=== PATIENT | male | born 1940 | race Two or more races ===

== ENCOUNTER 2024-04-02 13:40 | Inpatient (IN) | payer BC, OTHER ==
[2024-04-02] VITALS (8 sets, daily range): BP systolic 106–126; BP diastolic 52–61; PULSE 55–68; RESP 14–16; TEMP 96.6; O2SAT 93–100
[~2024-04-02] VITALS: Ht 172.7 cm; Wt 92.0 kg
[2024-04-02] MEDS: ETOMIDATE (2MG/ML) 20ML VIAL IV ONE ×2 (14:30→14:47)
[2024-04-02] MEDS: NOREPINEPHRINE 8 MG/250ML KIT 250 ML IV SCH (14:35)
[2024-04-02] MEDS: MIDAZOLAM DRIP 50 mg/50mL 50 ML IV SCH (14:40)
[2024-04-02] MEDS ORDERED: NOREPINEPHRINE 8 MG/250ML KIT 250 ML IV SCH (14:45)
[2024-04-02] MEDS ORDERED: MIDAZOLAM DRIP 50 mg/50mL 50 ML IV SCH (14:45)
[2024-04-02] MEDS: MIDAZOLAM DRIP 50 mg/50mL 50 ML IV ONE (14:48)
[2024-04-02] MEDS: SUCCINYLCHOLINE CHLORIDE 20 MG/ML 10ML VIAL IV ONE (14:48)
[2024-04-02] MEDS: NOREPINEPHRINE 8 MG/250ML KIT 250 ML IV ONE (14:49)
[2024-04-02 15:48] LABS: Basophils # (auto) 0 10 ^3/uL (0-0.2); Basophils % (auto) 0.3 % (0.0-2.0); Eosinophils # (auto) 0 10 ^3/uL (0-0.8); Eosinophils % (auto) 0.3 % (0.0-7.0); Hematocrit 32.5 % (41.0-53.0); Hemoglobin 11.1 g/dL (13.5-17.5); Lymphocytes # (auto) 1.9 10 ^3/uL (0.4-5.4); Lymphocytes % (auto) 17.1 % (10.0-50.0); Mean Corpuscular Hemoglobin 31.3 pg (28.0-32.0); Mean Corpuscular Hgb Conc. 34.1 g/dL (32.0-36.0); Mean Corpuscular Volume 91.6 fL (80.0-100.0); Monocytes # (auto) 0.7 10 ^3/uL (0-1.3); Monocytes % (auto) 6.5 % (0.0-12.0); Neutrophils # (auto) 8.5 10 ^3/uL (1.6-8.6); Neutrophils % (auto) 75.8 % (37.0-80.0); Nucleated Red Blood Cells % 0.1 %; Red Blood Cells 3.55 10^6/uL (4.5-5.90); Red Cell Distribution Width 14.1 % (11.8-14.3); White Blood Cell 11.2 10^3/uL (4.4-10.8)
[2024-04-02] MEDS: SODIUM CHLORIDE 0.9% 1,000 ML IV ONE (15:54)
[2024-04-02 15:58] LABS: Base Excess 1.1 mmol/L (-2.0-2.0)
[2024-04-02 15:59] LABS: Alanine Aminotransferase 49 U/L (7-40); Albumin 3.9 g/dL (3.2-4.8); Alkaline Phosphatase 46 U/L (46-116); Anion Gap 10 (5-15); Aspartate Aminotransferase 99 U/L (13-40); BUN/Creatinine Ratio 19.6 (10.0-20.0); Bilirubin, Total 1.4 mg/dL (0.2-1.0); Blood Urea Nitrogen 18 mg/dL (9-23); Carbon Dioxide 25 mmol/L (20-30); Chloride 100 mmol/L (98-107); Glucose 176 mg/dL (74-106); Sodium 135 mmol/L (136-145); Total Protein 6.8 g/dL (5.7-8.2)
[2024-04-02 16:10] LABS: Lactic Acid w/Reflex 2.6 mmol/L (0.4-2.0); Potassium 2.5 mmol/L (3.5-5.1)
[2024-04-02 16:17] LABS: Lipase 55 U/L (12-53)
[2024-04-02] MEDS: POTASSIUM CHL 20MEQ/100ML 100 ML IV SCH (16:30)
[2024-04-02] MEDS: cefTRIAXone 1GM/50ML D5W 50 ML IV ONE (16:30)
[2024-04-02] MEDS: AZITHROMYCIN 500MG/ 250ML 250 ML IV ONE (17:00)
[2024-04-02] MEDS ORDERED: ACETAMINOPHEN 325 MG TAB PO PRN (17:45)
[2024-04-02] MEDS ORDERED: NITROGLYCERIN 0.4 MG SL TAB SL PRN (17:45)
[2024-04-02] MEDS ORDERED: MORPHINE SULFATE INJ 2 MG/ml SYRG IV PRN (17:45)
[2024-04-02] MEDS ORDERED: ONDANSETRON HCL 4 MG/2 ML VIAL IV PRN (17:45)
[2024-04-02] MEDS: SODIUM CHLORIDE 0.9% 1,000 ML IV SCH (18:57)
[2024-04-02 19:28] LABS: Urine Bacteria FEW /hpf (None Seen); Urine Blood Negative /uL (Negative); Urine Clarity Clear (Clear); Urine Color Yellow (Yellow); Urine Hyaline Cast FEW /lpf (0 - 2); Urine Mucus FEW (None Seen); Urine Protein, UAD 1+ (Negative); Urine Specific Gravity 1.025 (1.001-1.035); Urine Urobilinogen 4 mg/dL (Negative); Urine WBC 2 /hpf (0 - 3); Urine pH 6.5 (5.0-9.0)
[2024-04-03] VITALS (13 sets, daily range): BP systolic 90–123; BP diastolic 42–57; PULSE 51–61; RESP 14–18; O2SAT 99–100
[2024-04-03 04:37] LABS: Basophils # (auto) 0.1 10 ^3/uL (0-0.2); Basophils % (auto) 0.5 % (0.0-2.0); Eosinophils # (auto) 0.1 10 ^3/uL (0-0.8); Eosinophils % (auto) 0.9 % (0.0-7.0); Hematocrit 29.6 % (41.0-53.0); Hemoglobin 10.2 g/dL (13.5-17.5); Lymphocytes # (auto) 1.4 10 ^3/uL (0.4-5.4); Lymphocytes % (auto) 12.5 % (10.0-50.0); Mean Corpuscular Hemoglobin 31.6 pg (28.0-32.0); Mean Corpuscular Hgb Conc. 34.5 g/dL (32.0-36.0); Mean Corpuscular Volume 91.8 fL (80.0-100.0); Monocytes # (auto) 0.9 10 ^3/uL (0-1.3); Monocytes % (auto) 8.5 % (0.0-12.0); Neutrophils # (auto) 8.4 10 ^3/uL (1.6-8.6); Neutrophils % (auto) 77.6 % (37.0-80.0); Nucleated Red Blood Cells % 0.1 %; Red Blood Cells 3.22 10^6/uL (4.5-5.90); Red Cell Distribution Width 14.1 % (11.8-14.3); White Blood Cell 10.8 10^3/uL (4.4-10.8)
[2024-04-03 04:57] LABS: Alanine Aminotransferase 35 U/L (7-40); Albumin 3.5 g/dL (3.2-4.8); Alkaline Phosphatase 42 U/L (46-116); Anion Gap 6 (5-15); Aspartate Aminotransferase 69 U/L (13-40); BUN/Creatinine Ratio 23.8 (10.0-20.0); Blood Urea Nitrogen 20 mg/dL (9-23); Calcium 8.4 mg/dL (8.5-10.1); Carbon Dioxide 25 mmol/L (20-30); Chloride 105 mmol/L (98-107); Glucose 125 mg/dL (74-106); Potassium 3.1 mmol/L (3.5-5.1); Sodium 136 mmol/L (136-145)
[2024-04-03 04:58] LABS: Bilirubin, Total 1.1 mg/dL (0.2-1.0)
[2024-04-03 07:24] LABS: Base Excess 0.7 mmol/L (-2.0-2.0)
[2024-04-03] MEDS: cefTRIAXone 1GM/50ML D5W 50 ML IV SCH (09:06)
[2024-04-03] MEDS: ENOXAPARIN SOD 40 MG/0.4 ML SYRINGE SC SCH (10:37)
[2024-04-03] MEDS: POTASSIUM CHL 20MEQ/100ML 100 ML IV SCH (11:04)
[2024-04-03] MEDS: PANTOPRAZOLE 40 MG/10 ML VIAL INJ IV SCH (12:36)
[2024-04-04] VITALS (79 sets, daily range): BP systolic 89–176; BP diastolic 43–83; PULSE 45–65; RESP 8–27; TEMP 96.6–98.4; O2SAT 98–100
[2024-04-04 05:14] LABS: Basophils # (auto) 0 10 ^3/uL (0-0.2); Basophils % (auto) 0.3 % (0.0-2.0); Eosinophils # (auto) 0 10 ^3/uL (0-0.8); Eosinophils % (auto) 0.3 % (0.0-7.0); Hematocrit 28.2 % (41.0-53.0); Hemoglobin 9.6 g/dL (13.5-17.5); Mean Corpuscular Hemoglobin 31.6 pg (28.0-32.0); Mean Corpuscular Volume 92.9 fL (80.0-100.0); Monocytes # (auto) 0.7 10 ^3/uL (0-1.3); Monocytes % (auto) 6.8 % (0.0-12.0); Neutrophils # (auto) 8.2 10 ^3/uL (1.6-8.6); Neutrophils % (auto) 82.6 % (37.0-80.0); Red Blood Cells 3.03 10^6/uL (4.5-5.90); Red Cell Distribution Width 14.4 % (11.8-14.3); White Blood Cell 9.9 10^3/uL (4.4-10.8)
[2024-04-04 05:32] LABS: Alanine Aminotransferase 24 U/L (7-40); Albumin 3.2 g/dL (3.2-4.8); Alkaline Phosphatase 44 U/L (46-116); Anion Gap 5 (5-15); Aspartate Aminotransferase 35 U/L (13-40); BUN/Creatinine Ratio 26.8 (10.0-20.0); Blood Urea Nitrogen 22 mg/dL (9-23); Calcium 8.3 mg/dL (8.7-10.4); Carbon Dioxide 24 mmol/L (20-30); Chloride 107 mmol/L (98-107); Glucose 116 mg/dL (74-106); Potassium 3.3 mmol/L (3.5-5.1); Sodium 136 mmol/L (136-145)
[2024-04-04 05:33] LABS: Bilirubin, Total 0.9 mg/dL (0.2-1.0); Total Protein 5.8 g/dL (5.7-8.2)
[2024-04-04 07:09] LABS: Base Excess -1.4 mmol/L (-2.0-2.0)
[2024-04-04] MEDS: POTASSIUM CHL 20MEQ/100ML 100 ML IV ONE (09:31)
[2024-04-04 11:21] LABS: Free T3 1.26 pg/mL (2.3-4.2)
[2024-04-04 11:24] LABS: Free T4 (Free Thyroxine) 0.66 ng/dL (0.89-1.76)
[2024-04-04] MEDS: EPINEPHrine HCL 1 MG/10 ML SYRG ONE (12:38)
[2024-04-04] MEDS: DOPamine 1600MCG/ML D5W 0 ML IV ONE (12:42)
[2024-04-04] MEDS ORDERED: LEVOTHYROXINE SODIUM 100 MCG/5 ML INJ IV SCH (18:00)
[2024-04-05] VITALS (108 sets, daily range): BP systolic 78–159; BP diastolic 35–72; PULSE 45–102; RESP 12–30; TEMP 93.5–99.3; O2SAT 93–100
[2024-04-05 04:13] LABS: Basophils # (auto) 0 10 ^3/uL (0-0.2); Basophils % (auto) 0.2 % (0.0-2.0); Eosinophils # (auto) 0 10 ^3/uL (0-0.8); Eosinophils % (auto) 0.2 % (0.0-7.0); Hematocrit 27.5 % (41.0-53.0); Hemoglobin 9.6 g/dL (13.5-17.5); Lymphocytes # (auto) 0.8 10 ^3/uL (0.4-5.4); Lymphocytes % (auto) 7.7 % (10.0-50.0); Mean Corpuscular Hemoglobin 31.9 pg (28.0-32.0); Mean Corpuscular Hgb Conc. 34.7 g/dL (32.0-36.0); Monocytes # (auto) 0.7 10 ^3/uL (0-1.3); Monocytes % (auto) 6.7 % (0.0-12.0); Neutrophils # (auto) 8.4 10 ^3/uL (1.6-8.6); Neutrophils % (auto) 85.2 % (37.0-80.0); Red Cell Distribution Width 14.3 % (11.8-14.3); White Blood Cell 9.8 10^3/uL (4.4-10.8)
[2024-04-05 04:23] LABS: Alanine Aminotransferase 22 U/L (7-40); Albumin 3.3 g/dL (3.2-4.8); Alkaline Phosphatase 48 U/L (46-116); Anion Gap 4 (5-15); Aspartate Aminotransferase 25 U/L (13-40); BUN/Creatinine Ratio 40.9 (10.0-20.0); Blood Urea Nitrogen 27 mg/dL (9-23); Calcium 8.5 mg/dL (8.7-10.4); Carbon Dioxide 24 mmol/L (20-30); Chloride 108 mmol/L (98-107); Glucose 117 mg/dL (74-106); Magnesium 2.1 mg/dL (1.6-2.6); Potassium 3.4 mmol/L (3.5-5.1); Sodium 136 mmol/L (136-145)
[2024-04-05 04:24] LABS: Bilirubin, Total 0.9 mg/dL (0.2-1.0)
[2024-04-05] MEDS: LEVOTHYROXINE SODIUM 100 MCG/5 ML INJ IV SCH (06:29)
[2024-04-05 07:00] LABS: Base Excess -1.4 mmol/L (-2.0-2.0)
[2024-04-05] MEDS: ISOPROTERENOL HCL INJECTION 1 MG in D5W 5% 250 ML IV SCH ×3 (10:00→19:30)
[2024-04-05] MEDS ORDERED: Jevity 1.2 Cal/Fiber 1 Liter GT SCH (10:00)
[2024-04-05] MEDS: fentaNYL Drip 2500mCg/250mlNS 250 ML IV SCH (12:07)
[2024-04-05] MEDS ORDERED: ROSU20TA14 PO (12:21)
[2024-04-05] MEDS ORDERED: LEVO150T10 PO (12:21)
[2024-04-05] MEDS ORDERED: CYA100I PO (12:21)
[2024-04-05] MEDS ORDERED: VALS320T PO (12:21)
[2024-04-05] MEDS ORDERED: NIF10C PO (12:21)
[2024-04-05] MEDS ORDERED: HYDR25TA5 PO (12:21)
[2024-04-05] MEDS ORDERED: DONETAB5 PO (12:21)
[2024-04-05] MEDS ORDERED: METO25TA93 PO (12:21)
[2024-04-05] MEDS ORDERED: ISOPROTERENOL HCL INJECTION 1 MG in D5W 5% 250 ML IV SCH (19:15)
[2024-04-06] VITALS (98 sets, daily range): BP systolic 84–143; BP diastolic 40–94; PULSE 59–94; RESP 5–29; TEMP 93.4–98.4; O2SAT 92–100
[2024-04-06] MEDS: PIPERACILLIN-TAZOB 3.375GM 100 ML IV ONE (01:30)
[2024-04-06 04:10] LABS: Basophils # (auto) 0 10 ^3/uL (0-0.2); Basophils % (auto) 0.3 % (0.0-2.0); Eosinophils # (auto) 0 10 ^3/uL (0-0.8); Eosinophils % (auto) 0.1 % (0.0-7.0); Hematocrit 27.2 % (41.0-53.0); Hemoglobin 9.4 g/dL (13.5-17.5); Lymphocytes # (auto) 0.7 10 ^3/uL (0.4-5.4); Lymphocytes % (auto) 7.6 % (10.0-50.0); Mean Corpuscular Hemoglobin 32.2 pg (28.0-32.0); Mean Corpuscular Hgb Conc. 34.6 g/dL (32.0-36.0); Mean Corpuscular Volume 92.9 fL (80.0-100.0); Monocytes # (auto) 0.8 10 ^3/uL (0-1.3); Monocytes % (auto) 7.9 % (0.0-12.0); Neutrophils # (auto) 8.1 10 ^3/uL (1.6-8.6); Neutrophils % (auto) 84.1 % (37.0-80.0); Red Blood Cells 2.93 10^6/uL (4.5-5.90); Red Cell Distribution Width 14.2 % (11.8-14.3); White Blood Cell 9.6 10^3/uL (4.4-10.8)
[2024-04-06 04:20] LABS: Chloride 105 mmol/L (98-107); Sodium 138 mmol/L (136-145)
[2024-04-06 04:21] LABS: Anion Gap 10 (5-15); Carbon Dioxide 23 mmol/L (20-30)
[2024-04-06 04:22] LABS: Calcium 7.7 mg/dL (8.7-10.4)
[2024-04-06 04:23] LABS: Partial Thromboplastin Time 22.8 SEC (24.5-34.5); Prothrombin Time 10.6 sec (9.3-11.8)
[2024-04-06 04:26] LABS: BUN/Creatinine Ratio 37.7 (10.0-20.0); Blood Urea Nitrogen 29 mg/dL (9-23); Glucose 126 mg/dL (74-106)
[2024-04-06 04:27] LABS: Magnesium 1.7 mg/dL (1.6-2.6)
[2024-04-06 04:29] LABS: Phosphorus 3.3 mg/dL (2.4-5.1)
[2024-04-06] MEDS: PIPERACILLIN-TAZOB 3.375GM 100 ML IV SCH (05:41)
[2024-04-06] MEDS: VANCOMYCIN 1GM/200ML 200 ML IV ONE (06:40)
[2024-04-06] MEDS: VANCOMYCIN HCL 1000 MG VL ONE ×2 (06:40→08:49)
[2024-04-06] MEDS: LIDOCAINE 2%HCL (LOCAL ANESTH.) INJ 20ML MDV ONE (06:40)
[2024-04-06] MEDS: IOHEXOL 350 MG/ML 100ML IJ ONE ×2 (07:17→08:29)
[2024-04-06] MEDS: LEVOTHYROXINE SODIUM 100 MCG/5 ML INJ IV SCH (07:39)
[2024-04-06 11:53] LABS: Base Excess -3.4 mmol/L (-2.0-2.0)
[2024-04-06] MEDS: VANCOMYCIN 1GM/200ML 200 ML IV SCH (22:11)
[2024-04-07] VITALS (102 sets, daily range): BP systolic 86–152; BP diastolic 41–76; PULSE 56–103; RESP 11–29; TEMP 97.4–99.7; O2SAT 89–100
[2024-04-07 06:08] LABS: Basophils # (auto) 0.1 10 ^3/uL (0-0.2); Eosinophils # (auto) 0.1 10 ^3/uL (0-0.8); Eosinophils % (auto) 1.5 % (0.0-7.0); Hemoglobin 8.9 g/dL (13.5-17.5); Lymphocytes # (auto) 0.7 10 ^3/uL (0.4-5.4); Lymphocytes % (auto) 9.3 % (10.0-50.0); Mean Corpuscular Hgb Conc. 34.2 g/dL (32.0-36.0); Mean Corpuscular Volume 93.4 fL (80.0-100.0); Monocytes # (auto) 0.7 10 ^3/uL (0-1.3); Neutrophils % (auto) 79.2 % (37.0-80.0); Red Blood Cells 2.78 10^6/uL (4.5-5.90); Red Cell Distribution Width 14.3 % (11.8-14.3); White Blood Cell 7.6 10^3/uL (4.4-10.8)
[2024-04-07 06:28] LABS: Anion Gap 7 (5-15); Carbon Dioxide 23 mmol/L (20-30); Chloride 108 mmol/L (98-107); Sodium 138 mmol/L (136-145)
[2024-04-07 06:29] LABS: Calcium 8.4 mg/dL (8.7-10.4)
[2024-04-07 06:34] LABS: BUN/Creatinine Ratio 28.2 (10.0-20.0); Blood Urea Nitrogen 24 mg/dL (9-23); Glucose 97 mg/dL (74-106)
[2024-04-07 06:35] LABS: Magnesium 2.1 mg/dL (1.6-2.6)
[2024-04-07 07:58] LABS: Base Excess -0.4 mmol/L (-2.0-2.0)
[2024-04-07] MEDS: NOREPINEPHRINE 8 MG/250ML KIT 250 ML IV SCH (11:00)
[2024-04-07] MEDS: ENOXAPARIN SOD 100 MG/1 ML SYRINGE SC ONE (18:58)
[2024-04-08] VITALS (99 sets, daily range): BP systolic 91–152; BP diastolic 35–63; PULSE 56–74; RESP 11–26; TEMP 97.2–98.1; O2SAT 93–100
[2024-04-08 04:49] LABS: Anion Gap 5 (5-15); Carbon Dioxide 25 mmol/L (20-30); Chloride 108 mmol/L (98-107); Potassium 3.6 mmol/L (3.5-5.1); Sodium 138 mmol/L (136-145)
[2024-04-08 04:50] LABS: Calcium 8.3 mg/dL (8.7-10.4)
[2024-04-08 04:55] LABS: BUN/Creatinine Ratio 38.5 (10.0-20.0); Blood Urea Nitrogen 25 mg/dL (9-23); Glucose 109 mg/dL (74-106); Magnesium 2.2 mg/dL (1.6-2.6)
[2024-04-08 05:03] LABS: Basophils # (auto) 0 10 ^3/uL (0-0.2); Basophils % (auto) 0.4 % (0.0-2.0); Eosinophils # (auto) 0 10 ^3/uL (0-0.8); Eosinophils % (auto) 0.7 % (0.0-7.0); Hematocrit 24.7 % (41.0-53.0); Hemoglobin 8.5 g/dL (13.5-17.5); Lymphocytes # (auto) 0.8 10 ^3/uL (0.4-5.4); Mean Corpuscular Hemoglobin 32.1 pg (28.0-32.0); Mean Corpuscular Hgb Conc. 34.4 g/dL (32.0-36.0); Mean Corpuscular Volume 93.3 fL (80.0-100.0); Monocytes # (auto) 0.6 10 ^3/uL (0-1.3); Monocytes % (auto) 8.4 % (0.0-12.0); Neutrophils # (auto) 5.2 10 ^3/uL (1.6-8.6); Neutrophils % (auto) 78.5 % (37.0-80.0); Red Blood Cells 2.64 10^6/uL (4.5-5.90); Red Cell Distribution Width 14.2 % (11.8-14.3); White Blood Cell 6.6 10^3/uL (4.4-10.8)
[2024-04-08 10:18] LABS: Base Excess -0.2 mmol/L (-2.0-2.0)
[2024-04-08] MEDS: ALBUTEROL SULF 2.5 MG/0.5ML(0.5%) NEB SOLN NEB PRN (10:33)
[2024-04-08] MEDS ORDERED: LORazepam 2MG/ML-1ML VIAL IV PRN (12:00)
[2024-04-08] MEDS: ENOXAPARIN SOD 100 MG/1 ML SYRINGE SC SCH (14:14)
[2024-04-08] MEDS: LATANOPROST 0.005 % OPTH(EYE) SOL 2.5ML EACHEYE SCH (22:07)
[2024-04-09] VITALS (106 sets, daily range): BP systolic 78–148; BP diastolic 31–79; PULSE 53–73; RESP 9–36; TEMP 94.3–99.3; O2SAT 83–100
[2024-04-09 04:35] LABS: Basophils # (auto) 0 10 ^3/uL (0-0.2); Basophils % (auto) 0.3 % (0.0-2.0); Eosinophils # (auto) 0 10 ^3/uL (0-0.8); Eosinophils % (auto) 0.1 % (0.0-7.0); Hemoglobin 8.8 g/dL (13.5-17.5); Lymphocytes # (auto) 0.5 10 ^3/uL (0.4-5.4); Lymphocytes % (auto) 6.8 % (10.0-50.0); Mean Corpuscular Hemoglobin 31.9 pg (28.0-32.0); Mean Corpuscular Hgb Conc. 33.9 g/dL (32.0-36.0); Mean Corpuscular Volume 94.2 fL (80.0-100.0); Monocytes # (auto) 0.5 10 ^3/uL (0-1.3); Monocytes % (auto) 7.9 % (0.0-12.0); Neutrophils # (auto) 5.8 10 ^3/uL (1.6-8.6); Neutrophils % (auto) 84.9 % (37.0-80.0); Red Blood Cells 2.76 10^6/uL (4.5-5.90); Red Cell Distribution Width 14.4 % (11.8-14.3); White Blood Cell 6.9 10^3/uL (4.4-10.8)
[2024-04-09 04:37] LABS: Alanine Aminotransferase 32 U/L (7-40); Albumin 3.2 g/dL (3.2-4.8); Alkaline Phosphatase 53 U/L (46-116); Anion Gap 8 (5-15); Aspartate Aminotransferase 42 U/L (13-40); BUN/Creatinine Ratio 26.3 (10.0-20.0); Blood Urea Nitrogen 15 mg/dL (9-23); Calcium 8.5 mg/dL (8.7-10.4); Carbon Dioxide 20 mmol/L (20-30); Chloride 109 mmol/L (98-107); Glucose 125 mg/dL (74-106); Magnesium 2.3 mg/dL (1.6-2.6); Phosphorus 3.2 mg/dL (2.4-5.1); Potassium 3.7 mmol/L (3.5-5.1); Sodium 137 mmol/L (136-145)
[2024-04-09] MEDS: ALBUMIN 25% 100 ML IV ONE (19:33)
[2024-04-09] MEDS: FUROSEMIDE 20 MG/2 ML VIAL IV ONE (20:59)
[2024-04-10] VITALS (96 sets, daily range): BP systolic 72–128; BP diastolic 32–55; PULSE 46–68; RESP 14–24; TEMP 97.2–98.2; O2SAT 83–100
[2024-04-10 04:14] LABS: Hematocrit 44.5 % (41.0-53.0); Hemoglobin 13.9 g/dL (13.5-17.5); Mean Corpuscular Hemoglobin 30.7 pg (28.0-32.0); Mean Corpuscular Hgb Conc. 31.3 g/dL (32.0-36.0); Mean Corpuscular Volume 98.2 fL (80.0-100.0); Red Blood Cells 4.53 10^6/uL (4.5-5.90); Red Cell Distribution Width 16.2 % (11.8-14.3); White Blood Cell 8.2 10^3/uL (4.4-10.8)
[2024-04-10 04:23] LABS: Band Neutrophils % (manual) 0; Basophils % (manual) 0 (0.0-2.0); Blast Cells 0; Eosinophils % (manual) 0 (0-7); Metamyelocytes % 0; Myelocytes % 0; Promyelocytes % 0; Reactive Lymphocytes 0
[2024-04-10 04:37] LABS: Alanine Aminotransferase 277 U/L (7-40); Albumin 3.5 g/dL (3.2-4.8); Alkaline Phosphatase 108 U/L (46-116); Aspartate Aminotransferase 267 U/L (13-40); BUN/Creatinine Ratio 9.2 (10.0-20.0); Bilirubin, Total 1.2 mg/dL (0.2-1.0); Blood Urea Nitrogen 12 mg/dL (9-23); Calcium 8.6 mg/dL (8.7-10.4); Chloride 105 mmol/L (98-107); Glucose 76 mg/dL (74-106); Magnesium 1.9 mg/dL (1.6-2.6); Potassium 4.3 mmol/L (3.5-5.1); Sodium 137 mmol/L (136-145); Total Protein 7.3 g/dL (5.7-8.2)
[2024-04-10 05:02] LABS: Anion Gap 14 (5-15); Carbon Dioxide 18 mmol/L (20-30)
[2024-04-10 06:28] LABS: Anisocytosis Slight; Lymphocytes % (manual) 25 (10.0-50.0); Macrocytosis Slight; Monocytes % (manual) 8 (0-12); Platelet Estimate Decreased; Polychromasia Slight
[2024-04-10] MEDS: SODIUM CHLORIDE 0.9% 500 ML IV SCH (18:52)
[2024-04-10] MEDS: NOREPINEPHRINE 8 MG/250ML KIT 250 ML IV SCH (20:57)
[2024-04-10] MEDS: ACETYLCYSTEINE 10 %(100MG/ML) SOL 4ML NEB SCH (22:00)
[2024-04-11] VITALS (104 sets, daily range): BP systolic 89–130; BP diastolic 33–63; PULSE 60–115; RESP 14–28; TEMP 96.4–99.3; O2SAT 88–100
[2024-04-11] MEDS: FUROSEMIDE 20 MG/2 ML VIAL IV ONE (00:30)
[2024-04-11 01:41] LABS: Base Excess 0.6 mmol/L (-2.0-2.0)
[2024-04-11 05:01] LABS: Basophils # (auto) 0 10 ^3/uL (0-0.2); Basophils % (auto) 0.1 % (0.0-2.0); Eosinophils # (auto) 0 10 ^3/uL (0-0.8); Hematocrit 23.2 % (41.0-53.0); Lymphocytes # (auto) 0.5 10 ^3/uL (0.4-5.4); Lymphocytes % (auto) 4.1 % (10.0-50.0); Mean Corpuscular Hemoglobin 31.8 pg (28.0-32.0); Mean Corpuscular Hgb Conc. 34.3 g/dL (32.0-36.0); Mean Corpuscular Volume 92.9 fL (80.0-100.0); Monocytes # (auto) 0.7 10 ^3/uL (0-1.3); Monocytes % (auto) 5.8 % (0.0-12.0); Neutrophils # (auto) 10.2 10 ^3/uL (1.6-8.6); Red Cell Distribution Width 14.5 % (11.8-14.3); White Blood Cell 11.3 10^3/uL (4.4-10.8)
[2024-04-11 05:18] LABS: Alanine Aminotransferase 35 U/L (7-40); Albumin 3.5 g/dL (3.2-4.8); Alkaline Phosphatase 55 U/L (46-116); Anion Gap 6 (5-15); Aspartate Aminotransferase 35 U/L (13-40); BUN/Creatinine Ratio 45.1 (10.0-20.0); Calcium 8.4 mg/dL (8.5-10.1); Carbon Dioxide 27 mmol/L (20-30); Chloride 109 mmol/L (98-107); Glucose 96 mg/dL (74-106); Magnesium 2.4 mg/dL (1.6-2.6); Potassium 2.9 mmol/L (3.5-5.1); Sodium 142 mmol/L (136-145)
[2024-04-11 05:19] LABS: Bilirubin, Total 1.3 mg/dL (0.2-1.0); Total Protein 5.9 g/dL (5.7-8.2)
[2024-04-11 05:21] LABS: Blood Urea Nitrogen 32 mg/dL (9-23)
[2024-04-11] MEDS: ALBUTEROL SULF 2.5 MG/0.5ML(0.5%) NEB SOLN NEB PRN (06:40)
[2024-04-11] MEDS: POTASSIUM CHL 20 Meq TABLET PO ONE (07:00)
[2024-04-11] MEDS: POTASSIUM CHL 20MEQ/100ML 100 ML IV SCH (07:34)
[2024-04-11] MEDS ORDERED: Jevity 1.2 Cal/Fiber 1 Liter GT SCH (14:15)
[2024-04-11] MEDS ORDERED: CLINIMIX PER PHARMACY 0 ML IV SCH (14:45)
[2024-04-11] MEDS ORDERED: DEXTROSE (50%) 50ML SYRG IV SCH (15:30)
[2024-04-11] MEDS: ACCU-CHEK COMFORT CURVE STRIP VI SCH (17:25)
[2024-04-11] MEDS: InsuLIN REG 1unit/0.01ml Soln (100units/ml) SC SCH (17:25)
[2024-04-11] MEDS: AMINO ACID INFUSION IN D10W 2,000 ML IV NR (18:36)
[2024-04-11 19:00] LABS: Free T3 0.93 pg/mL (2.3-4.2); Free T4 (Free Thyroxine) 0.79 ng/dL (0.89-1.76)
[2024-04-11] MEDS: POTASSIUM CHL 20MEQ/100ML 100 ML IV ONE (22:14)
[2024-04-12] VITALS (87 sets, daily range): BP systolic 89–135; BP diastolic 37–69; PULSE 60–67; RESP 13–28; TEMP 97.3–99; O2SAT 85–100
[2024-04-12 05:05] LABS: Basophils # (auto) 0 10 ^3/uL (0-0.2); Basophils % (auto) 0.1 % (0.0-2.0); Eosinophils # (auto) 0 10 ^3/uL (0-0.8); Eosinophils % (auto) 0.1 % (0.0-7.0); Hematocrit 21.6 % (41.0-53.0); Hemoglobin 7.4 g/dL (13.5-17.5); Lymphocytes # (auto) 0.5 10 ^3/uL (0.4-5.4); Lymphocytes % (auto) 4.6 % (10.0-50.0); Mean Corpuscular Hemoglobin 32.2 pg (28.0-32.0); Mean Corpuscular Hgb Conc. 34.4 g/dL (32.0-36.0); Mean Corpuscular Volume 93.5 fL (80.0-100.0); Monocytes # (auto) 0.6 10 ^3/uL (0-1.3); Monocytes % (auto) 6.4 % (0.0-12.0); Neutrophils % (auto) 88.8 % (37.0-80.0); Red Blood Cells 2.32 10^6/uL (4.5-5.90); Red Cell Distribution Width 14.5 % (11.8-14.3); White Blood Cell 10.1 10^3/uL (4.4-10.8)
[2024-04-12 05:20] LABS: Alanine Aminotransferase 35 U/L (7-40); Albumin 3.3 g/dL (3.2-4.8); Alkaline Phosphatase 53 U/L (46-116); Anion Gap 7 (5-15); Aspartate Aminotransferase 26 U/L (13-40); BUN/Creatinine Ratio 52.4 (10.0-20.0); Blood Urea Nitrogen 33 mg/dL (9-23); Calcium 8.4 mg/dL (8.5-10.1); Carbon Dioxide 25 mmol/L (20-30); Chloride 110 mmol/L (98-107); Glucose 121 mg/dL (74-106); Magnesium 2.4 mg/dL (1.6-2.6); Potassium 3.4 mmol/L (3.5-5.1); Sodium 142 mmol/L (136-145); Triglycerides 98 mg/dL (< 150)
[2024-04-12 05:21] LABS: Bilirubin, Total 0.8 mg/dL (0.2-1.0); Total Protein 5.7 g/dL (5.7-8.2)
[2024-04-12 05:34] LABS: INR 1.03 (0.9-1.15); Partial Thromboplastin Time 31.3 SEC (24.5-34.5); Prothrombin Time 10.9 sec (9.3-11.8)
[2024-04-12] MEDS: MAGNESIUM SULFATE 1GM/100ML 100 ML IV ONE (08:18)
[2024-04-12] MEDS: POTASSIUM CHL 20MEQ/100ML 100 ML IV ONE (08:18)
[2024-04-12 09:15] LABS: % Iron Saturation 8.8 % (20-55)
[2024-04-12 11:00] LABS: Hematocrit 22.1 % (41.0-53.0); Hemoglobin 7.3 g/dL (13.5-17.5)
[2024-04-12] MEDS: IRON SUCROSE COMPLEX 100 ML IV SCH (11:52)
[2024-04-12] MEDS: POTASSIUM PHOSPHATE 22 MEQ in SODIUM CHL 0.9% 100 ML IV ONE (15:00)
[2024-04-12] MEDS: FUROSEMIDE 20 MG/2 ML VIAL IV ONE (18:56)
[2024-04-12] MEDS: FUROSEMIDE 20 MG/2 ML VIAL ONE (19:04)
[2024-04-12 19:15] LABS: Hematocrit 26.4 % (41.0-53.0); Hemoglobin 8.9 g/dL (13.5-17.5)
[2024-04-12] MEDS: AMINO ACID INFUSION IN D10W 2,000 ML IV NR (20:04)
[2024-04-13] VITALS (111 sets, daily range): BP systolic 80–141; BP diastolic 32–81; PULSE 60–78; RESP 13–30; TEMP 96.8–98.6; O2SAT 89–100
[2024-04-13 00:27] LABS: Hematocrit 26.2 % (41.0-53.0); Hemoglobin 8.6 g/dL (13.5-17.5)
[2024-04-13 03:27] LABS: Basophils # (auto) 0 10 ^3/uL (0-0.2); Eosinophils # (auto) 0 10 ^3/uL (0-0.8); Lymphocytes # (auto) 0.4 10 ^3/uL (0.4-5.4)
[2024-04-13 03:28] LABS: Eosinophils % (auto) 0.1 % (0.0-7.0); Hematocrit 24.8 % (41.0-53.0); Hemoglobin 8.5 g/dL (13.5-17.5); Lymphocytes % (auto) 3.1 % (10.0-50.0); Mean Corpuscular Hemoglobin 31.5 pg (28.0-32.0); Mean Corpuscular Hgb Conc. 34.1 g/dL (32.0-36.0); Mean Corpuscular Volume 92.3 fL (80.0-100.0); Monocytes # (auto) 0.8 10 ^3/uL (0-1.3); Monocytes % (auto) 5.6 % (0.0-12.0); Neutrophils # (auto) 12.5 10 ^3/uL (1.6-8.6); Neutrophils % (auto) 91.2 % (37.0-80.0); Red Blood Cells 2.68 10^6/uL (4.5-5.90); Red Cell Distribution Width 15.8 % (11.8-14.3); White Blood Cell 13.7 10^3/uL (4.4-10.8)
[2024-04-13 03:43] LABS: Alanine Aminotransferase 34 U/L (7-40); Albumin 3.2 g/dL (3.2-4.8); Alkaline Phosphatase 57 U/L (46-116); Anion Gap 4 (5-15); Aspartate Aminotransferase 28 U/L (13-40); Blood Urea Nitrogen 29 mg/dL (9-23); Calcium 8.3 mg/dL (8.7-10.4); Carbon Dioxide 25 mmol/L (20-30); Chloride 111 mmol/L (98-107); Glucose 126 mg/dL (74-106); Magnesium 2.4 mg/dL (1.6-2.6); Potassium 3.3 mmol/L (3.5-5.1); Sodium 140 mmol/L (136-145)
[2024-04-13 03:44] LABS: Bilirubin, Total 0.9 mg/dL (0.2-1.0); Phosphorus 2.3 mg/dL (2.4-5.1); Total Protein 5.8 g/dL (5.7-8.2)
[2024-04-13] MEDS ORDERED: FUROSEMIDE 20 MG/2 ML VIAL IV SCH (10:00)
[2024-04-13] MEDS: ENOXAPARIN SOD 40 MG/0.4 ML SYRINGE SC SCH (10:24)
[2024-04-13] MEDS: FUROSEMIDE 20 MG/2 ML VIAL IV ONE (10:32)
[2024-04-13] MEDS: POTASSIUM CHL 20MEQ/100ML 100 ML IV ONE (10:33)
[2024-04-13] MEDS ORDERED: MORPHINE SULFATE INJ 2 MG/ml SYRG IV PRN (10:45)
[2024-04-13 12:27] LABS: Hematocrit 28.2 % (41.0-53.0); Hemoglobin 9.5 g/dL (13.5-17.5)
[2024-04-13 19:43] LABS: Hemoglobin 8.6 g/dL (13.5-17.5)
[2024-04-13] MEDS: AMINO ACID INFUSION IN D10W 2,000 ML IV NR (20:00)
[2024-04-13] MEDS ORDERED: AMINO ACID INFUSION IN D10W 1,000 ML IV ONE (20:00)
[2024-04-13] MEDS: METOCLOPRAMIDE HCL 5MG/ml INJ 2ml VIAL IV SCH (21:56)
[2024-04-14] VITALS (108 sets, daily range): BP systolic 78–140; BP diastolic 34–64; PULSE 60–98; RESP 10–30; TEMP 96.4–98.8; O2SAT 86–100
[2024-04-14 01:00] LABS: Hematocrit 25.1 % (41.0-53.0); Hemoglobin 8.5 g/dL (13.5-17.5)
[2024-04-14 04:01] LABS: Basophils # (auto) 0 10 ^3/uL (0-0.2); Eosinophils # (auto) 0 10 ^3/uL (0-0.8); Eosinophils % (auto) 0.1 % (0.0-7.0); Hematocrit 26.6 % (41.0-53.0); Hemoglobin 8.9 g/dL (13.5-17.5); Lymphocytes # (auto) 0.4 10 ^3/uL (0.4-5.4); Lymphocytes % (auto) 2.9 % (10.0-50.0); Mean Corpuscular Hemoglobin 30.9 pg (28.0-32.0); Mean Corpuscular Hgb Conc. 33.6 g/dL (32.0-36.0); Mean Corpuscular Volume 91.9 fL (80.0-100.0); Monocytes # (auto) 0.7 10 ^3/uL (0-1.3); Monocytes % (auto) 5.5 % (0.0-12.0); Neutrophils # (auto) 12.2 10 ^3/uL (1.6-8.6); Neutrophils % (auto) 91.5 % (37.0-80.0); Red Blood Cells 2.89 10^6/uL (4.5-5.90); Red Cell Distribution Width 15.7 % (11.8-14.3); White Blood Cell 13.3 10^3/uL (4.4-10.8)
[2024-04-14 04:18] LABS: Alanine Aminotransferase 41 U/L (7-40); Alkaline Phosphatase 77 U/L (46-116); Anion Gap 6 (5-15); Aspartate Aminotransferase 33 U/L (13-40); BUN/Creatinine Ratio 47.3 (10.0-20.0); Blood Urea Nitrogen 26 mg/dL (9-23); Calcium 8.5 mg/dL (8.7-10.4); Carbon Dioxide 25 mmol/L (20-30); Chloride 110 mmol/L (98-107); Glucose 118 mg/dL (74-106); Magnesium 2.3 mg/dL (1.6-2.6); Potassium 3.5 mmol/L (3.5-5.1); Sodium 141 mmol/L (136-145)
[2024-04-14 04:19] LABS: Albumin 3.3 g/dL (3.2-4.8); Bilirubin, Total 0.7 mg/dL (0.2-1.0); Phosphorus 2.3 mg/dL (2.4-5.1); Total Protein 6.1 g/dL (5.7-8.2)
[2024-04-14 11:52] LABS: Hematocrit 26.2 % (41.0-53.0); Hemoglobin 8.7 g/dL (13.5-17.5)
[2024-04-14] MEDS: POTASSIUM PHOSP 22MEQ(15MMOLE) in NS 100 ML IV ONE (14:01)
[2024-04-14 15:57] LABS: Base Excess -0.8 mmol/L (-2.0-2.0)
[2024-04-14] MEDS ORDERED: AMINO ACID INFUSION IN D10W 2,000 ML IV NR (20:00)
[2024-04-14] MEDS: AMINO ACID INFUSION IN D10W 1,000 ML IV SCH (20:27)
[2024-04-15] VITALS (110 sets, daily range): BP systolic 81–139; BP diastolic 31–61; PULSE 60–78; RESP 10–30; TEMP 96.8–98.1; O2SAT 89–100
[2024-04-15 03:43] LABS: Basophils # (auto) 0 10 ^3/uL (0-0.2); Eosinophils # (auto) 0 10 ^3/uL (0-0.8); Eosinophils % (auto) 0.1 % (0.0-7.0); Hemoglobin 8.8 g/dL (13.5-17.5); Lymphocytes # (auto) 0.6 10 ^3/uL (0.4-5.4); Lymphocytes % (auto) 5.1 % (10.0-50.0); Mean Corpuscular Hemoglobin 31.3 pg (28.0-32.0); Mean Corpuscular Volume 92.1 fL (80.0-100.0); Monocytes # (auto) 0.7 10 ^3/uL (0-1.3); Monocytes % (auto) 6.5 % (0.0-12.0); Neutrophils # (auto) 10.2 10 ^3/uL (1.6-8.6); Neutrophils % (auto) 88.3 % (37.0-80.0); Red Blood Cells 2.82 10^6/uL (4.5-5.90); White Blood Cell 11.5 10^3/uL (4.4-10.8)
[2024-04-15 04:02] LABS: Alanine Aminotransferase 45 U/L (7-40); Albumin 3.3 g/dL (3.2-4.8); Alkaline Phosphatase 81 U/L (46-116); Anion Gap 6 (5-15); BUN/Creatinine Ratio 54.7 (10.0-20.0); Blood Urea Nitrogen 29 mg/dL (9-23); Calcium 8.6 mg/dL (8.5-10.1); Carbon Dioxide 26 mmol/L (20-30); Chloride 110 mmol/L (98-107); Glucose 119 mg/dL (74-106); Magnesium 2.3 mg/dL (1.6-2.6); Potassium 3.8 mmol/L (3.5-5.1); Sodium 142 mmol/L (136-145)
[2024-04-15 04:03] LABS: Aspartate Aminotransferase 28 U/L (13-40); Bilirubin, Total 0.5 mg/dL (0.2-1.0); Phosphorus 2.8 mg/dL (2.4-5.1)
[2024-04-15 13:28] LABS: Free T3 1.18 pg/mL (2.3-4.2); Free T4 (Free Thyroxine) 0.75 ng/dL (0.89-1.76)
[2024-04-15] MEDS: Jevity 1.2 Cal/Fiber 1 Liter GT SCH (17:34)
[2024-04-15] MEDS ORDERED: AMINO ACID INFUSION IN D10W 2,000 ML IV NR (20:00)
[2024-04-15] MEDS: AMINO ACID INFUSION IN D10W 1,000 ML IV ONE (21:44)
[2024-04-15] MEDS: FUROSEMIDE 20 MG/2 ML VIAL IV ONE (23:19)
[2024-04-16] VITALS (64 sets, daily range): BP systolic 59–139; BP diastolic 28–55; PULSE 60–92; RESP 12–30; TEMP 96.1–97.3; O2SAT 88–100
[2024-04-16 04:22] LABS: Basophils # (auto) 0 10 ^3/uL (0-0.2); Eosinophils # (auto) 0 10 ^3/uL (0-0.8); Hematocrit 27.2 % (41.0-53.0); Hemoglobin 9.1 g/dL (13.5-17.5); Lymphocytes # (auto) 0.3 10 ^3/uL (0.4-5.4); Lymphocytes % (auto) 2.6 % (10.0-50.0); Mean Corpuscular Hemoglobin 31.6 pg (28.0-32.0); Mean Corpuscular Hgb Conc. 33.6 g/dL (32.0-36.0); Monocytes # (auto) 0.7 10 ^3/uL (0-1.3); Monocytes % (auto) 5.7 % (0.0-12.0); Neutrophils # (auto) 10.8 10 ^3/uL (1.6-8.6); Neutrophils % (auto) 91.7 % (37.0-80.0); Red Blood Cells 2.89 10^6/uL (4.5-5.90); Red Cell Distribution Width 15.8 % (11.8-14.3); White Blood Cell 11.8 10^3/uL (4.4-10.8)
[2024-04-16 04:33] LABS: Alanine Aminotransferase 52 U/L (7-40); Alkaline Phosphatase 93 U/L (46-116); Anion Gap 5 (5-15); BUN/Creatinine Ratio 43.8 (10.0-20.0); Blood Urea Nitrogen 28 mg/dL (9-23); Calcium 8.9 mg/dL (8.5-10.1); Carbon Dioxide 28 mmol/L (20-30); Chloride 109 mmol/L (98-107); Glucose 158 mg/dL (74-106); Magnesium 2.4 mg/dL (1.6-2.6); Potassium 4.3 mmol/L (3.5-5.1); Sodium 142 mmol/L (136-145)
[2024-04-16 04:34] LABS: Albumin 3.4 g/dL (3.2-4.8); Aspartate Aminotransferase 35 U/L (13-40); Bilirubin, Total 0.5 mg/dL (0.2-1.0); Phosphorus 3.7 mg/dL (2.4-5.1); Total Protein 6.3 g/dL (5.7-8.2)
[2024-04-16] MEDS: LEVOTHYROXINE SODIUM 100 MCG/5 ML INJ IV SCH (06:00)
[2024-04-16] MEDS: VASOPRESSIN 20 UNIT/ML ONE (15:46)
[2024-04-16] MEDS ORDERED: AMINO ACID INFUSION IN D10W 1,000 ML IV SCH (20:00)
== END 2024-04-16 15:55 | DRG 242 ==
LOC: EDBD 13:40 → EDUNIT# 13:40 → ER 13:54 → DOU IN ICU 17:40 → TELE 22:51 → ICU WEST 04-04 15:23 → DOU IN ICU 04-10 15:29 → ICU CENTRL 04-11 05:36 → ICU WEST 04-12 17:45
PROVIDERS: ADMIT Internal Medicine Pulmonary Disease; ATTEND Emergency Medicine
PROC: 02HV33Z Insertion of Infusion Device into Superior Vena Cava, Percutaneous Approach (ICD-10-PCS; 2024-04-02)
PROC: B548ZZA Ultrasonography of Superior Vena Cava, Guidance (ICD-10-PCS; 2024-04-02)
PROC: 5A12012 Performance of Cardiac Output, Single, Manual (ICD-10-PCS; 2024-04-02)
PROC: 0BH17EZ Insertion of Endotracheal Airway into Trachea, Via Natural or Artificial Opening (ICD-10-PCS; 2024-04-02)
PROC: 5A1955Z Respiratory Ventilation, Greater than 96 Consecutive Hours (ICD-10-PCS; 2024-04-02)
PROC: 5A12012 Performance of Cardiac Output, Single, Manual (ICD-10-PCS; 2024-04-04)
PROC: 0JH606Z Insertion of Pacemaker, Dual Chamber into Chest Subcutaneous Tissue and Fascia, Open Approach (ICD-10-PCS; principal; 2024-04-06)
PROC: 02H63JZ Insertion of Pacemaker Lead into Right Atrium, Percutaneous Approach (ICD-10-PCS; 2024-04-06)
PROC: B5171ZZ Fluoroscopy of Left Subclavian Vein using Low Osmolar Contrast (ICD-10-PCS; 2024-04-06)
PROC: 02HK3JZ Insertion of Pacemaker Lead into Right Ventricle, Percutaneous Approach (ICD-10-PCS; 2024-04-06)
PROC: 5A09357 Assistance with Respiratory Ventilation, Less than 24 Consecutive Hours, Continuous Positive Airway Pressure (ICD-10-PCS; 2024-04-11)
PROC: 30233N1 Transfusion of Nonautologous Red Blood Cells into Peripheral Vein, Percutaneous Approach (ICD-10-PCS; 2024-04-12)
PROC: 5A09357 Assistance with Respiratory Ventilation, Less than 24 Consecutive Hours, Continuous Positive Airway Pressure (ICD-10-PCS; 2024-04-12)
PROC: 5A09357 Assistance with Respiratory Ventilation, Less than 24 Consecutive Hours, Continuous Positive Airway Pressure (ICD-10-PCS; 2024-04-13)
PROC: 5A12012 Performance of Cardiac Output, Single, Manual (ICD-10-PCS; 2024-04-16)
DX: I49.5 Sick sinus syndrome (principal); G92.8 Other toxic encephalopathy; J96.01 Acute respiratory failure with hypoxia; J69.0 Pneumonitis due to inhalation of food and vomit; I82.612 Acute embolism and thrombosis of superficial veins of left upper extremity; N39.0 Urinary tract infection, site not specified; I46.9 Cardiac arrest, cause unspecified; D64.9 Anemia, unspecified; E87.6 Hypokalemia; I10 Essential (primary) hypertension; R74.01 Elevation of levels of liver transaminase levels; E03.9 Hypothyroidism, unspecified; F03.90 Unspecified dementia, unspecified severity, without behavioral disturbance, psychotic disturbance, mood disturbance, and anxiety
CPT/HCPCS: 31500; 33208; 36415; 36556; 36600; 70450; 71045; 71275; 72125; 74176; 76705; 80048; 80053; 81001; 82140; 82533; 82805; 82962; 83540; 83550; 83605; 83690; 83735; 83880; 84100; 84132; 84439; 84443; 84478; 84481; 84484; 85007; 85014; 85018; 85025; 85027; 85379; 85610; 85730; 86850; 86900; 86901; 86920; 87040; 87070; 87081; 87086; 87205; 92507; 92610; 92950; 93005; 93306; 93970; 93971; 94002; 94003; 94640; 94660; 94668; 96361; 96374; 97110; 97163; 99152; 99291; C9113; G0378; J0330; J1756; J1815; J2543; J3480; J3490; J7060; P9047